=== PATIENT | female | born 1950 | race Caucasian/White ===

== ENCOUNTER 2024-06-19 15:08 | Emergency (ER) | payer MEDICAID ==
[~2024-06-19] VITALS: Ht 152.4 cm; Wt 100.2 kg
[2024-06-19] MEDS ORDERED: ONDANSETRON HCL/PF 4 MG/2 ML VIAL ONE ×2 (16:11→19:53)
[2024-06-19] MEDS ORDERED: MORPHINE SULFATE INJ 2 MG/ML DISP.SYRIN ONE (16:11)
[2024-06-19 16:14] LABS: BASOPHILS % (AUTO) 0.2 % (0.0-2.0); HEMATOCRIT 43 % (33-45); HEMOGLOBIN 14.2 g/dL (11.5-14.8); LYMPHOCYTES % (AUTO) 12.2 % (20.0-44.0); MEAN CORPUSCULAR HEMOGLOBIN 27 PG (26.0-33.0); MEAN CORPUSCULAR HGB CONC 33 g/dl (31.0-36.0); MEAN CORPUSCULAR VOLUME 83 fL (82-100); MONOCYTES # (AUTO) 0.4 K/uL (0.1-1.30); MONOCYTES % (AUTO) 4.9 % (2.0-12.0); NEUTROPHILS # (AUTO) 6.6 K/uL (1.8-8.9); NEUTROPHILS % (AUTO) 82.7 % (43.0-81.0); PLATELET COUNT (AUTO) 255 K/uL (150-450); RED BLOOD CELL COUNT(AUTO) 5.22 MIL/uL (4.0-5.2); RED CELL DISTRIBUTION WIDTH 15.1 % (11.5-15.0)
[2024-06-19] MEDS: IV NS 0.9% 1,000 ML IV ONE (16:18)
[2024-06-19] MEDS: MORPHINE SULFATE INJ 2 MG/ML DISP.SYRIN IV ONE (16:19)
[2024-06-19] MEDS: ONDANSETRON HCL/PF - ER 4 MG/2 ML VIAL IV ONE ×2 (16:20→19:56)
[2024-06-19 16:29] LABS: CALCIUM, SERUM 10.1 mg/dL (8.5-10.1); CREATININE 0.7 mg/dL (0.6-1.3); POTASSIUM 3.6 mmol/L (3.5-5.1)
[2024-06-19 16:38] LABS: LACTIC ACID 1.8 mmol/L (0.4-2.0)
[2024-06-19 16:43] LABS: ALBUMIN 4.2 g/dL (3.4-5.0); BILIRUBIN,TOTAL 0.5 mg/dL (0.2-1.0); TOTAL PROTEIN, SERUM 7.9 g/dL (6.4-8.2)
[2024-06-19 17:39] LABS: APPEARANCE,URINE SLIGHTLY CLOUDY (CLEAR); BILIRUBIN,URINE 1+ (NEGATIVE); BLOOD, URINE NEGATIVE Ery/uL (NEGATIVE); COLOR,URINE YELLOW (YELLOW); KETONES,URINE 1+ mg/dL (NEGATIVE); LEUKOCYTE ESTERASE ,URINE NEGATIVE (NEGATIVE); NITRITE, URINE NEGATIVE (NEGATIVE); PROTEIN,URINE 3+ mg/dl (NEGATIVE); UGLUCOSE NEGATIVE (NEGATIVE); UROBILINOGEN,URINE 0.2 EU/dL (0.2)
[2024-06-19 17:44] LABS: ADD URINE CULTURE YES; BACTERIA,URINE 1+ /HPF (None Seen); HYALINE CASTS, URINE Few /LPF (None Seen); MUCUS,URINE Few /LPF (None Seen); RBC,URINE 0-2 /HPF (0-2); SQUAMOUS EPITHELIAL CELL,UR 21-50 /HPF (None Seen); WBC,URINE 0-2 /HPF (0-3)
[2024-06-19] MEDS ORDERED: MELO-107 PO (18:42)
[2024-06-19] MEDS ORDERED: METH500T6 PO (18:42)
[2024-06-19] MEDS ORDERED: WEGOVY SQ (18:42)
[2024-06-19] MEDS ORDERED: METF-442 PO (18:42)
[2024-06-19] MEDS ORDERED: ERGO500093 PO (18:42)
[2024-06-19] MEDS ORDERED: GABA300C PO (18:42)
[2024-06-19] MEDS ORDERED: OMEP20CA15 PO (18:42)
[2024-06-19] MEDS ORDERED: LOSA1TAB42 PO (18:42)
[2024-06-19 18:49] LABS: ABG BASE EXCESS 2.1 mmol/L (-2.0-3.0); ABG OXYGEN SATURATION 84.4 % (94.0-98.0); ABG PCO2 42.4 mmHg (32.0-45.0); ABG PO2 49.9 mmHg (83.0-108.0); ABG TOTAL HEMOGLOBIN 13.7 G/dL (12.0-16.0); COHb 0.6 % (0.5-1.5); MetHb 0.3 % (0.0-1.5); O2Hb 83.6 % (94.0-97.0); SITE, ABG LEFT RADIAL
[2024-06-19] MEDS: CLONIDINE HCL 0.1 MG TABLET PO ONE (20:26)
[2024-06-19 23:13] VITALS: BP 135/81; TEMP 98.1; O2SAT 96
[2024-06-19] MEDS ORDERED: ONDANSETRON HCL/PF 4 MG/2 ML VIAL IV PRN (23:30)
[2024-06-19] MEDS ORDERED: HYDROCODONE/APAP 5/325MG TABLET PO PRN (23:30)
[2024-06-19] MEDS ORDERED: DEXTROSE 50%-WATER 50 ML DISP.SYRIN IV PRN (23:30)
[2024-06-19] MEDS ORDERED: *INSULIN REGULAR(HUMULIN R)HUM 100 UNIT/ML VIAL SQ PRN (23:30)
[2024-06-19] MEDS ORDERED: INSULIN REGULAR, HUMAN 100 UNIT/ML 3 ML VIAL SQ PRN (23:30)
[2024-06-19] MEDS ORDERED: METHOCARBAMOL (500MG) 500 MG TABLET PO PRN (23:30)
[2024-06-19] MEDS ORDERED: ZOLPIDEM TARTRATE 5 MG TABLET PO PRN (23:30)
[2024-06-19] MEDS ORDERED: ACETAMINOPHEN 325 MG TABLET PO PRN (23:30)
[2024-06-20] MEDS ORDERED: PANTOPRAZOLE 40 MG TABLET.DR PO SCH (07:30)
[2024-06-20] MEDS ORDERED: BLOOD SUGAR DIAGNOSTIC 1 EACH STRIP VI SCH (07:30)
[2024-06-20] MEDS ORDERED: METFORMIN 500 MG TABLET PO SCH (08:00)
[2024-06-20] MEDS ORDERED: MELOXICAM 7.5 MG TABLET PO SCH (09:00)
[2024-06-20] MEDS ORDERED: GABAPENTIN 300 MG CAPSULE PO SCH (09:00)
[2024-06-20] MEDS ORDERED: Medication Not On Formulary EA (Losartan/Hydrochlorothiazide (Losartan-Hctz 100-12.5 Mg PO SCH (09:00)
== END 2024-06-19 23:12 | disposition left against medical advice (07) ==
LOC: ER 15:15 → UNDOADMIN 21:27 → MED 21:27 → ER 23:12 → TRANSITION 23:35 → MED 23:35 → UNDODISIN 23:45
DX: R09.02 Hypoxemia (principal); R10.9 Unspecified abdominal pain; R51.9 Headache, unspecified; R07.9 Chest pain, unspecified; E11.9 Type 2 diabetes mellitus without complications; Z20.822 Contact with and (suspected) exposure to COVID-19
CPT/HCPCS: 99285; 70450; 96374; 71045; 96361; 96375; 87426; 93005; 82803; 71275; 74176; 85025; 87086; 83605; 83690; 81001; 36415; 80053; 84484; 83880; 36600; 87040; 96376; 87081; J2405 ×4; J7030; J7050; J2270; Q9967; G0378; J1815